=== PATIENT | female | born 1980 | race Caucasian/White ===

== ENCOUNTER 2022-05-23 12:43 | Outpatient (CLI) | payer OTHER, SELFPAY ==
--- NOTE | 2022-05-23 14:00 | CRLHL7_ITS ---
For Patients: As a result of the Century Cures Act, medical imaging exams and procedure reports are released immediately into your electronic medical record. You may view this report before your referring provider. If you have questions, please contact your health care provider. Indication: PALPABLE MASS OF LOWER BACK ,Right lumbar hernia vs Lipoma Technique: Postcontrast CT abdomen and pelvis. 79 cc Isovue 370 intravenous contrast. Please note that all CT scans at this facility use dose modulation, iterative reconstruction, and/or weight-based dosing when appropriate to reduce radiation dose to as low as reasonably achievable. Comparison: MRI 04/13/2020 Findings: There is a marker along the right paraspinal skin. In this location there is no suspicious mass. No fluid collection or adenopathy. No skin thickening. No soft tissue gas or radiodense foreign body. The bladder is normal. Normal uterus and ovaries. No excess pelvic free fluid. The appendix is surgically absent. No pelvic or inguinal adenopathy. The kidneys and ureters are within normal limits. No bowel obstruction or inflammatory change. There is a small hypodensity within the posterior segment of the right hepatic lobe measuring 1 cm, representing hemangioma or cyst. Spleen normal. Normal pancreas. Normal gallbladder. Adrenal glands normal. Mild areas of atelectasis/scarring in both lung bases. Anterior spurring L2-3. A few scattered subcentimeter mesenteric lymph nodes are present which are considered normal. Impression: No soft tissue mass or hernia. The right posterior paramidline soft tissues appear normal without fluid collection or solid mass. Please note that all CT scans at this facility use dose modulation, iterative reconstruction, and/or weight-based dosing when appropriate to reduce radiation dose to as low as reasonably achievable. Dictated by Nael Hatfield MD @ 05/24/2022 9:16:19 AM (Electronically Signed)
== END 2022-05-23 12:44 | disposition home or self-care (01) ==
LOC: CT 12:45
PROVIDERS: Visit Provider Surgery
DX: R22.2 Localized swelling, mass and lump, trunk (principal)
CPT/HCPCS: 74177; Q9967

== ENCOUNTER 2022-12-17 16:15 | Outpatient (RCR) | payer OTHER, SELFPAY | END 2023-01-10 16:01 | disposition home or self-care (01) | PROVIDERS: Visit Provider Orthopaedic Surgery Orthopaedic Surgery of the Spine | DX: M48.02 Spinal stenosis, cervical region (principal); Z51.89 Encounter for other specified aftercare | CPT/HCPCS: 97012; 97110; 97140; 97162 ==

== ENCOUNTER 2024-05-19 07:58 | Outpatient (CLI) | payer OTHER, SELFPAY ==
--- NOTE | 2024-05-19 08:15 | MR_ITS ---
[address] [address] Phone:?[phone] Fax:?[phone] Referring Physician Information: Juan Diego Olguin M.D. [id number] [id number] Phone:?[phone] Fax:?[phone] Patient:Sonal Pichardo.Torri.B:?1980 Sex:?Female Phone:?[phone] [facility] MRN:?[id number] Exam Date:?05/19/2024 EXAM: MRI of the LEFT SHOULDER, without contrast CLINICAL: Evaluate for rotator cuff tear. COMPARISONS: X-rays 05/14/2024. TECHNICAL: Multiplanar multisequence MRI of the left shoulder was obtained. SEDATION: None. CONTRAST: None. FINDINGS: Rotator cuff: Supraspinatus/Infraspinatus: There is mild tendinosis of the distal supraspinatus and infraspinatus tendons without evidence of tendon tear. No fatty atrophy of the muscle bellies. Teres minor: No tendinosis, tear or atrophy. Subscapularis: No tendinosis, tear or atrophy. Bursae: Subacromial-subdeltoid: No significant bursal fluid. Subcoracoid: No significant bursal fluid. Coracoacromial arch: Acromion morphology: Type I. No os acromiale. Acromiohumeral space: Within normal limits. Coracohumeral space: Within normal limits. Biceps tendon, long head: Intraarticular and extraarticular segments intact without rupture, tendinopathy or displacement. Glenohumeral joint: Physiologic volume of joint fluid. Articular cartilage: No significant chondral loss. Capsule: No convincing evidence of capsular thickening or injury. Labrum: There is tearing of the posterior and posterior inferior labrum as seen on axial series 4 images 15-19. Inferior labrum is diffusely attenuated. No perilabral cyst identified. Bones: No suspicious marrow signal alteration, fracture or dislocation. Acromioclavicular joint: No acute injury, arthropathy, or inferior hypertrophy. IMPRESSION: 1. Mild tendinosis of the distal supraspinatus and infraspinatus tendons without evidence of significant rotator cuff tendon tear. 2. Tearing of the posterior and posteroinferior labrum. Inferior labrum is diffusely attenuated. 3. No additional internal derangement identified. JCZ Electronically signed on 05/19/2024 10:28:00 AM by Nadeem Card D.O.
== END 2024-05-19 07:59 | disposition home or self-care (01) ==
LOC: MRI 07:59
PROVIDERS: Visit Provider Orthopaedic Surgery Sports Medicine
DX: M25.512 Pain in left shoulder (principal); M75.102 Unspecified rotator cuff tear or rupture of left shoulder, not specified as traumatic; S43.432A Superior glenoid labrum lesion of left shoulder, initial encounter
CPT/HCPCS: 73221